=== PATIENT | female | born 1975 | race Caucasian/White ===

== ENCOUNTER 2017-07-13 16:25 | Inpatient (IN) | payer OTHER ==
[~2017-07-13] VITALS: Ht 162.6 cm; Wt 72.6 kg
[~2017-07-13 16:25] MED LIST: ACARBOSE50 MG PO; ACETAMINOPHEN325 M1 PO; IBUPROFEN 400400 M1 PO; KEFLEX PO; PERCOCET 5-3251 EACH PO; PROTONIX40 M1 PO; ROBINUL1 MG PO; ZOLOFT 50 MG TA50 M1 PO; ZOVIRAX PO; ZYRTEC10 MG PO
[2017-07-13 16:54] VITALS: BP 119/82
[2017-07-13] MEDS ORDERED: DOXYCYCLINE 10100 MG PO (17:03)
[2017-07-13] MEDS ORDERED: XANAX 0.5 MG0.5 MG PO (17:04)
[2017-07-13] MEDS ORDERED: TRAZODONE HCL100 MG PO (17:04)
[2017-07-13] MEDS ORDERED: QUETIAPINE FUM100 MG PO (17:04)
[2017-07-13] MEDS ORDERED: LINZESS290 MCG PO (17:05)
[2017-07-13] MEDS ORDERED: ED-SPAZ0.125 MG PO (17:05)
[2017-07-13 17:19] LABS: URINE BILIRUBIN NEGATIVE (Negative); URINE BLOOD NEGATIVE (Negative); URINE CLARITY CLEAR; URINE COLOR ORANGE; URINE GLUCOSE-RANDOM TRACE (Negative); URINE KETONES NEGATIVE (Negative); URINE LEUKOCYTES-REFLEX TRACE (Negative); URINE PROTEIN 1+ (Negative); URINE SPECIFIC GRAVITY >= 1.030 (1.005-1.030)
[2017-07-13 17:20] LABS: URINE NITRITE-REFLEX POSITIVE (Negative)
[2017-07-13 17:29] LABS: SQUAMOUS 0-3 Few /LPF (0-3); URINE WBC-REFLEX 6-15 Few /HPF (0-5); WBC CLUMPS Few (None Seen)
[2017-07-13 17:30] LABS: BACTERIA-REFLEX 1-9 Few /HPF (None Seen); HYALINE CASTS 0-3 Few /LPF (None Seen); MUCUS 0-3 Light strn/LPF (None Seen); URINE RBC 0-2 Rare /HPF (0-2); WBC CASTS 0-3 /LPF
[2017-07-13 17:31] LABS: CRYSTALS None Seen /LPF (None Seen); WAXY CAST 0-3 Few /LPF (None Seen)
[2017-07-13 17:46] LABS: ABSOLUTE BASOPHILS 0.1 thou/uL (0.0-0.2); ABSOLUTE EOSINOPHILS 0.4 thou/uL (0.0-0.7); ABSOLUTE LYMPHOCYTES 1.3 thou/uL (0.8-5.3); ABSOLUTE MONOCYTES 0.4 thou/uL (0.0-1.2); ABSOLUTE NEUTROPHILS 5.9 thou/uL (1.6-8.1); BASOPHILS 0.8 %; EOSINOPHILS 5.1 %; HEMATOCRIT 36.6 % (37.0-47.0); HEMOGLOBIN 11.6 gm/dL (12.0-15.0); LYMPHOCYTES 15.9 %; MCH 23.9 pg (26.0-34.0); MCHC 31.6 g/dL (28.0-37.0); MCV 75.6 fL (80.0-100.0); MONOCYTES 4.9 %; MPV 7.8 fl. (7.2-11.1); NUCLEATED RBCS 0 /100WBC; PLATELET COUNT* 269 thou/uL (150-400); POLYS 73.3 %; RBC 4.85 mil/uL (4.20-5.00); RDW-CV 16.6 % (10.5-14.5); WBC 8.1 thou/uL (4.0-11.0)
[2017-07-13 17:54] LABS: CALCIUM 9.1 mg/dL (8.5-10.1); POTASSIUM 3.7 mmol/L (3.5-5.1)
[2017-07-13 17:59] LABS: ALBUMIN 4.2 g/dL (3.4-5.0); TOTAL BILIRUBIN 0.4 mg/dL (<0.1-1.0); TOTAL PROTEIN 8.8 g/dL (6.4-8.2)
[2017-07-13 21:25] LABS: AMP/METHAMP Negative (Negative); BARBITURATES Negative (Negative); BENZODIAZEPINES POSITIVE (Negative); COCAINE Negative (Negative); METHADONE Negative (Negative); OPIATES POSITIVE (Negative); PCP Negative (Negative); THC Negative (Negative)
[2017-07-13 22:09] VITALS: BP 141/98
[2017-07-14] VITALS (9 sets, daily range): BP systolic 71–110; BP diastolic 37–69
[2017-07-14 08:25] LABS: CHOLESTEROL 122 mg/dL (<200); HDL CHOLESTEROL 68 mg/dL (>40); LDL CHOLESTEROL 47 mg/dL (<100); TC:HDL 1.8 Ratio (Not establshd); TRIGLYCERIDE 36 mg/dL (<150); VLDL 7 mg/dL (<40)
[2017-07-14 08:26] LABS: SERUM ASSESSMENT Clear
--- NOTE | 2017-07-14 19:47 | NUR ---
PATIENT ARRIVED FROM ER THIS EVENING. PATIENT SETTLED TO ROOM AND VITALS AND ASSESSMENT COMPLETED AND DOCUMENTED. PATIENT HAD COMPLAINTS OF HEADACHE AND ABDOMINAL PAIN, TYLENOL AND MORPHINE GIVEN WITH COMPLETE RELIEF. GARFIELD WAS UNHAPPY ABOUT NPO STATUS AND WAS WANTING TO LEAVE AMA IS NO DIET ORDERED. DR MONET NOTIFIED AND ORDERS FOR CLEAR LIQUID DIET RECEIVED. PATIENT TOLERATED CLEAR LIQUID DIET. PATIENT DENIES ANY NEEDS AT THIS TIME. CALL LIGHT WITHIN REACH. WILL CONTINUE TO MONITOR.
[2017-07-15 04:44] LABS: HEMATOCRIT 25.9 % (37.0-47.0); MCH 24.1 pg (26.0-34.0); MCHC 31.7 g/dL (28.0-37.0); MCV 76.2 fL (80.0-100.0); MPV 8.1 fl. (7.2-11.1); RBC 3.4 mil/uL (4.20-5.00); RDW-CV 16.4 % (10.5-14.5)
--- NOTE | 2017-07-15 04:53 | NUR ---
PT SLEPT AT INTERVALS DURING THE NIGHT, CHANDRAAKNT, IV FLUIDS INFUSED, ROOM AIR, UP AD DANNA, PRN PAIN MED PER REQUEST FOR ABDOMINAL PAIN, CALL LIGHT IN REACH, CHANDRAKANT, WILL CONTINUE TO MONITOR
[2017-07-15 04:56] LABS: HEMOGLOBIN 8.2 gm/dL (12.0-15.0)
[2017-07-15 05:29] LABS: ALBUMIN 2.5 g/dL (3.4-5.0); CALCIUM 7.5 mg/dL (8.5-10.1); CREATININE 0.8 mg/dL (0.6-1.3); MAGNESIUM 1.6 mg/dL (1.8-2.4); POTASSIUM 4.2 mmol/L (3.5-5.1); TOTAL BILIRUBIN 0.2 mg/dL (<0.1-1.0); TOTAL PROTEIN 5.1 g/dL (6.4-8.2)
[2017-07-15 08:10] VITALS: BP 117/50
[2017-07-15] MEDS ORDERED: CIPRO500 MG PO (11:04)
[2017-07-15 12:54] LABS: % SATURATION 12 % (20-39); IRON 34 ug/dL (50-175)
--- NOTE | 2017-07-15 15:05 | NUR ---
PT.ALERT AND ORIENTED. SHE LIVES WITH HER AND DAUGHTER. SHE IS INDEPENEDENT WITH ALL THINGS. NO DME USE. SHE IS UNEMPLOYED. NOT DISCHARGE NEEDS ANTICIPATED.
[2017-07-15 15:43] VITALS: BP 106/68
--- NOTE | 2017-07-15 19:18 | NUR ---
PATIENT RESTING IN BED. PATIENT UP AD DANNA IN ROOM. PATIENT HAS HAD COMPLAINTS OF ABDOMINAL PAIN X 2 TODAY, TREATED ANDEQUATLEY WITH MORPHINE. PATIENT TOLERATED REGULAR DIET THIS EVENING. PATIENT DENIES ANY NEEDS AT THIS TIME. CALL LIGHT WITHIN REACH. WILL CONTINUE TO MONITOR.
[2017-07-15 20:15] VITALS: BP 100/68
--- NOTE | 2017-07-16 05:03 | NUR ---
PT SLEPT AT INTERVALS DURING THE NIGHT, IV FLUIDS INFUSED, UP AD DANNA, PRN PAINS MEDS PER REQUEST, PHYSICIAN CONTACTED LAST NIGHT FOR A ONE TIME EXTRA MORPHINE DOSE, CALL LIGHT IN REACH, PLEASANT, CALL LIGHT IN REACH, WILL CONTINUE TO MONITOR
[2017-07-16 07:35] LABS: HEMATOCRIT 26.3 % (37.0-47.0); HEMOGLOBIN 8.5 gm/dL (12.0-15.0); MCH 24.2 pg (26.0-34.0); MCHC 32.2 g/dL (28.0-37.0); MCV 75.1 fL (80.0-100.0); MPV 7.6 fl. (7.2-11.1); RBC 3.5 mil/uL (4.20-5.00); RDW-CV 16.7 % (10.5-14.5)
[2017-07-16 08:00] LABS: ALBUMIN 2.5 g/dL (3.4-5.0); CALCIUM 7.6 mg/dL (8.5-10.1); CREATININE 0.7 mg/dL (0.6-1.3); POTASSIUM 3.4 mmol/L (3.5-5.1); TOTAL BILIRUBIN 0.2 mg/dL (<0.1-1.0); TOTAL PROTEIN 5.4 g/dL (6.4-8.2)
[2017-07-16 09:30] VITALS: BP 118/78
[2017-07-16 13:00] VITALS: BP 118/78
--- NOTE | 2017-07-16 15:42 | NUR ---
PATIENT STATING HAVING PAIN AND NAUSEA AFTER ATTEMPTING TO EAT LUNCH. ZOFRAN AND MORPHINE GIVEN WITH RELIEF. PATIENT STATED SHE WANTS TO BE ABLE TO GO HOME BUT DIDN'T KNOW IF SHE CAN BE DISCHARGED TODAY. DR MELO PAGED AND ORDERS NOTED TO HOLD DISCHARGE FOR TODAY. PATIENT INFORMED OF THE ABOVE AND VERBALIZED UNDERSTANDING. WILL CONTINUE WITH PLAN OF CARE.
--- NOTE | 2017-07-16 19:30 | NUR ---
PATIENT HAS BEEN A/O X 4 THIS SHIFT. IV FLUIDS SALINE LOCKED THIS SHIFT. IV ANTIBIOTICS INFUSED. MEDICATED X 1 FOR PAIN WITH RELIEF AND NAUSEA MEDS X 1 WITH RELIEF. UP AD DANNA IN ROOM. DISCHARGE HELD FOR TODAY DUE TO INCREASED PAIN AND NAUSEA AFTER LUNCH. AT BEDSIDE THIS EVENING. PATIENT HOPEFUL TO BE DISCHARGED SOON. HOURLY ROUNDING COMPLETED. CALL LIGHT WITHIN REACH. WILL CONTINUE WITH PLAN OF CARE.
[2017-07-17] VITALS: BP 112/74
--- NOTE | 2017-07-17 07:44 | NUR ---
PT REQUESTING MORE EFFECTIVE PAIN MED AT START OF SHIFT, NOTIFIED AND NO NEW ORDERS AT THIS TIME. PO MEDS GIVEN PER PT REQUEST WITH FAIR RESULTS. ABD PAIN 07/12, DENIES NEED FOR NAUSEA MED. RFA IV ABX GIVEN- IV BECOMING PAINFUL AND REDDENNED AND DISCONTINUED. PT REFUSING NEW IV OVERNIGHT STATING SHE WILL PROBABLY DISCHARGE HOME TODAY. UP AD DANNA IN ROOM. ATE SOME PIZZA AT HS THAT BROUGHT IN. AM LAB DRAWN. ABLE TO USE CALL LITE AND MAKE NEEDS KNOWN. PLEASANT AND TALKATIVE THIS SHIFT.
[2017-07-17 09:15] VITALS: BP 115/75
[2017-07-17] MEDS ORDERED: PERCOCET 5-3251 EACH PO (10:21)
--- NOTE | 2017-07-17 13:58 | NUR ---
PATIENT AND SPOUSE GIVEN DISCHARGE INSTRUCTIONS AND NEW PRESCRIPTIONS. PATIENT AND SPOUSE VERBALIZED UNDERSTANDING. PATIENT DENIED ANY QUESTIONS, INFORMATION GIVEN REGARDING GI PHYSICIANS TO FOLLOW UP WITH. PATIENT DISCHARGED TO HOME WITH ALL BELONGINGS. AMBULATED OFF NURSING UNIT WITH NURSING STAFF.
--- NOTE | 2017-07-25 15:01 | CON ---
[address] [address] CONSULTATION Name: ZULLYJUNO Duron Room: [address] M.R.#: [id number] Admission: 07/13/17 Attend Phys: Sravan Carrillo MD Discharge: 07/17/17 Date of : 71 Report #: [id number] THIS REPORT FOR: //name// CC: Sravan Sanders DO DICTATED BY: Johanna Browne [facility] DATE OF SERVICE: 07/15/2017 PRIMARY CARE PHYSICIAN: Mikhail Sanders DO. Please note at the time of this dictation, the patient was seen and physically examined by myself. REASON FOR CONSULTATION: Elevated lipase. HISTORY OF PRESENT ILLNESS: This is a pleasant 42-year-old female who has a long-standing history of ongoing acute bouts of pancreatitis, which she had for approximately 7 years on a frequent basis until 2015 and they figured out that it may have been her famciclovir that she had been taking for her severe cold sores and mouth sores on a regular basis. Once she stopped taking that medication, she has not had any bouts since 03/2016 until now. She also during that time got off all of her medications pretty much, except for her Linzess and she has slowly started taking back some of her supplements due to her gastric bypass surgery done years ago, in which she does need some of those medicines. The patient has had EGD, colonoscopies and EUS done at various individual places and hospitals. Her last colon was done with Dr. Nunez, but once she started having issues with pancreatitis, she was then referred to tanisha at [facility], who did an EUS. She then went and saw Dr. Nunes for a brief period and then was sent to Dr. Wiggins, but he has since left the area and when he left the area, she does not know who took any of his practice and she has not been followed by anyone since that time. The patient does have a long-standing history of constipation with irritable bowel, in which she has taken Linzess 290 on a daily basis. However, prior to admission, she had had 3 days' worth of no bowel movement despite taking MiraLax b.i.d., the Linzess and some stool softeners as well. ALLERGIES: BENADRYL, CODEINE AND HYDROCODONE. MEDICATIONS: From home, Protonix, Zyrtec, Tylenol, ibuprofen, Percocet and sertraline. She was on doxycycline, trazodone, Seroquel, Xanax, Linzess and some hyoscyamine. PAST MEDICAL HISTORY: Anxiety, OCD, diabetes, history [place] [address] CONSULTATION Name: JUNO ANDREA Room: [address] [place] ..#: [id number] Admission: 07/13/17 Attend Phys: Sravan Carrillo MD Discharge: 07/17/17 Date of : 71 Report #: [id number] PAST SURGICAL HISTORY: Gastric bypass, sinus surgery and cholecystectomy. FAMILY HISTORY: Noncontributory. SOCIAL HISTORY: Denies any alcohol, tobacco or illegal drug use. REVIEW OF SYSTEMS: Twelve-point review of systems is essentially negative, except what is mentioned in the HPI. PHYSICAL EXAMINATION: VITAL SIGNS: Temperature 36.6, pulse 64, respirations 16 and blood pressure 117/50. HEART: Regular rate and rhythm. LUNGS: Clear. ABDOMEN: Soft. Positive bowel sounds in all 4 quadrants, with some slight epigastric to left upper quadrant tenderness noted and some left CVA tenderness noted. LABORATORY DATA: Hemoglobin 8.2, hematocrit 25.9, white count is 3 and platelets 153,000. Sodium 142, potassium 4.2, chloride 111, CO2 of 23, BUN is 7, creatinine 0.8, GFR 78 and glucose is 105. Total bilirubin 0.9, alkaline phosphatase 111, ALT 11 and AST is 64. Lipase came in at 788; she is down to 496. The patient states she is always told from her PCP that she tends to run higher than normal. IMPRESSION: 1. Acute pancreatitis. 2. Irritable bowel syndrome towards constipation. 3. Anemia, with no overt bleeding noted. 4. Urinary tract infection. PLAN: 1. We will increase her diet as tolerated. 2. We will obtain records from Dr. Nunez and at [facility] for review. 3. Labs, ferritin, B12 and iron. 4. Likely the patient will need a further workup as an outpatient in regards to her pancreatitis, with possibly restarting with an EUS to rule out sphincter of Oddi dysfunction and also recommended that she stop taking any of her supplements to see if [place] [address] CONSULTATION Name: JUNO ANDREA Room: [address] [place] M.R.#: [id number] Admission: 07/13/17 Attend Phys: Sravan Carrillo MD Discharge: 07/17/17 Date of : 71 Report #: [id number] Thank you for allowing us to participate in this patient's care. Please do not hesitate to call with any questions in regard to this consult. <ELECTRONICALLY SIGNED> By: Margaux Gaitan MD 07/25/17 1501 [id number] Gaitan MD /nt
== END 2017-07-17 14:11 | disposition home or self-care (01) | DRG 377 ==
LOC: M.ERS 16:25 → M.TBA-ER 20:55 → M.3W 07-14 17:29
PROVIDERS: Internal Medicine; Nurse Practitioner Adult Health; Physician Assistant; ADMIT Internal Medicine
DX: K92.1 Melena (principal); K85.90 Acute pancreatitis without necrosis or infection, unspecified; N39.0 Urinary tract infection, site not specified; R65.10 Systemic inflammatory response syndrome (SIRS) of non-infectious origin without acute organ dysfunction; E44.1 Mild protein-calorie malnutrition; K58.1 Irritable bowel syndrome with constipation; F41.9 Anxiety disorder, unspecified; F42.9 Obsessive-compulsive disorder, unspecified; E11.9 Type 2 diabetes mellitus without complications; D64.9 Anemia, unspecified; Z90.49 Acquired absence of other specified parts of digestive tract; Z98.84 Bariatric surgery status; Z79.899 Other long term (current) drug therapy; Z88.5 Allergy status to narcotic agent; Z88.8 Allergy status to other drugs, medicaments and biological substances

== ENCOUNTER 2018-10-18 14:44 | Emergency (ER) | payer OTHER ==
[~2018-10-18] VITALS: Ht 162.6 cm; Wt 79.4 kg
[~2018-10-18 14:44] MED LIST changes: +CIPRO500 MG PO; +DOXYCYCLINE 10100 MG PO; +ED-SPAZ0.125 MG PO; +LINZESS290 MCG PO; +QUETIAPINE FUM100 MG PO; +TRAZODONE HCL100 MG PO; +XANAX 0.5 MG0.5 MG PO
[2018-10-18 15:18] LABS: ABSOLUTE EOSINOPHILS 0.1 thou/uL (0.0-0.7); ABSOLUTE LYMPHOCYTES 1.4 thou/uL (0.8-5.3); ABSOLUTE MONOCYTES 0.4 thou/uL (0.0-1.2); ABSOLUTE NEUTROPHILS 2.7 thou/uL (1.6-8.1); BASOPHILS 0.3 %; EOSINOPHILS 2.2 %; HEMATOCRIT 41.2 % (37.0-47.0); HEMOGLOBIN 13.8 gm/dL (12.0-15.0); LYMPHOCYTES 30.4 %; MCH 30.3 pg (26.0-34.0); MCHC 33.5 g/dL (28.0-37.0); MCV 90.5 fL (80.0-100.0); MONOCYTES 9.3 %; MPV 7.4 fl. (7.2-11.1); NUCLEATED RBCS 0 /100WBC; PLATELET COUNT* 231 thou/uL (150-400); POLYS 57.8 %; RBC 4.55 mil/uL (4.20-5.00); RDW-CV 13.5 % (10.5-14.5); WBC 4.6 thou/uL (4.0-11.0)
[2018-10-18 15:37] LABS: ANION GAP 9 mmol/L (7-16); BUN 13 mg/dL (7-18); CALCIUM 8.6 mg/dL (8.5-10.1); CHLORIDE 106 mmol/L (98-107); CO2 26 mmol/L (21-32); CREATININE 0.7 mg/dL (0.6-1.3); GLUCOSE 97 mg/dL (70-99); POTASSIUM 3.6 mmol/L (3.5-5.1); SODIUM 141 mmol/L (136-145)
[2018-10-18 15:39] LABS: APTT 22.9 Seconds (25.0-31.3); PROTIME 10.6 Seconds (9.20-11.50)
[2018-10-18 15:41] LABS: ALBUMIN 3.5 g/dL (3.4-5.0); ALKALINE PHOSPHATASE 144 U/L (46-116); LIPASE 325 U/L (73-393); SGOT 20 U/L (15-37); SGPT 6 U/L (30-65); TOTAL BILIRUBIN 0.3 mg/dL (<0.1-1.0); TOTAL PROTEIN 7.7 g/dL (6.4-8.2); TROPONIN-I LEVEL <0.06 ng/mL (<0.06)
[2018-10-18 16:14] LABS: URINE BILIRUBIN NEGATIVE (Negative); URINE BLOOD NEGATIVE (Negative); URINE CLARITY CLEAR; URINE COLOR YELLOW; URINE GLUCOSE-RANDOM NEGATIVE (Negative); URINE KETONES NEGATIVE (Negative); URINE LEUKOCYTES-REFLEX NEGATIVE (Negative); URINE NITRITE-REFLEX NEGATIVE (Negative); URINE PROTEIN NEGATIVE (Negative); URINE SPECIFIC GRAVITY <= 1.005 (1.005-1.030); URINE UROBILINOGEN 0.2 E.U./dl (0.2-1.0)
[2018-10-18 18:33] VITALS: BP 115/79
--- NOTE | 2018-10-19 16:25 | EKG ---
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
== END 2018-10-18 18:34 | disposition home or self-care (01) ==
LOC: M.ERS 14:44
PROVIDERS: Physician Assistant
DX: R51 Headache (principal); F10.129 Alcohol abuse with intoxication, unspecified; J32.9 Chronic sinusitis, unspecified; F41.9 Anxiety disorder, unspecified; E11.9 Type 2 diabetes mellitus without complications; Z98.84 Bariatric surgery status; Z88.5 Allergy status to narcotic agent; Z88.8 Allergy status to other drugs, medicaments and biological substances